=== PATIENT | male | born 1965 | race Caucasian/White ===

== ENCOUNTER 2022-07-20 00:22 | Observation (INO) | payer OTHER ==
--- NOTE | 2022-07-20 00:26 | ERPHSYRPT ---
- History of Present Illness Time Seen by Provider: 07/20/22 00:26 Source: patient, family Exam Limitations: intoxication Physician History: 57yo brought in by family after seizure like activity at home. He had been drinking heavily earlier in the night and when he got home didn't feel right. Patient called his family and when they arrived they witnessed him shaking unc ontrollably in his chair. He denies fall, hitting head of LOC. He denied recreational drug usage. Patient also denies hx of seizure or recently stopping a medication. He denies F/C/N/V, WRIGHT, weakness, CP, abd pain, SOB, palpitations or swelling. Timing/Duration: today Severity: moderate Character of Deficits: impaired speech Deficits: off balance, decrease ability to walk Baseline/Normal Cognition: alert oriented x 3 Current Cognition: alert but confused Baseline Gait: walks w/o assistance Associated Symptoms: confusion, weakness (legs), slurred speech, trouble walking, No fever, No chills, No loss of consciousness, No nausea, No vomiting, No chest pain, No headache Allergies/Adverse Reactions: No Known Drug Allergies Allergy (Verified 07/20/22 00:39) Home Medications: Simvastatin 20Mg [Zocor 20Mg] 20 mg PO DAILY 07/20/22 [History] - Review of Systems Constitutional: No Symptoms Eyes: No Symptoms Ears, Nose, & Throat: No Symptoms Respiratory: No Symptoms Cardiac: No Symptoms Abdominal/Gastrointestinal: No Symptoms Genitourinary Symptoms: No Symptoms Skin: No Symptoms Neurological: Seizure, Speech Changes, Other (weakness b/l LE) Psychological: Alcohol Abuse All Other Systems: Reviewed and Negative - Nursing Vital Signs Nursing Vital Signs: Initial Vital Signs Pulse Rate 116 H 07/20/22 00:31 Respiratory Rate 16 07/20/22 00:31 Blood Pressure 174/102 07/20/22 00:31 O2 Sat by Pulse Oximetry 100 07/20/22 00:31 Pain Scale Pain Intensity 0 - Martin Coma Scale Best Eye Response (Martin): (4) open spontaneously Best Verbal Response ([place]): (5) oriented Best Motor Response (Martin): (6) obeys commands Martin Total: 15 - Physical Exam General Appearance: no apparent distress Eye Exam: bilateral eye: normal inspection, PERRL, EOMI Ears, Nose, Throat Exam: normal ENT inspection Neck Exam: normal inspection, non-tender, supple, full range of motion, No Brudzinski, No Kernig's Respiratory: normal breath sounds, lungs clear, airway intact, No chest tenderness, No respiratory distress Cardiovascular: regular rate/rhythm, normal heart sounds, capillary refill <2 sec, No murmur Gastrointestinal: soft, normal bowel sounds, No tenderness, No distention Mental Status: alert, cooperative, intoxicated appearance water purifier Exam: normal hearing, PERRL, abnormal speech, tongue midline Coordination/Gait: abnormal gait, No normal gait Motor/Sensory: no sensory deficit, no pronator drift, weak motor strength RLE, weak motor strength LLE Skin Exam: normal color, warm, dry SpO2 Interpretation: normal O2 Delivery: Room Air - Course Nursing assessment & vital signs reviewed: Yes EKG Interpreted by Me: RATE (88), Sinus Rhythm, prolonged QT interval, Left Bundle Branch Block, ST Elev (v1, v2, v3 secondary to IVCD), Other (IN 199) - CT Exams Head CT Interpretation: Negative Ordered Tests: Active Orders 24 hr Category Date Time Status Impregnator Helper STAT Care 07/20/22 00:28 Active EKG-ER Only STAT Care 07/20/22 00:27 Active IV Insertion STAT Care 07/20/22 00:27 Active NPO (ED) STAT Care 07/20/22 00:27 Active POCT Glucose Check STAT Care 07/20/22 00:27 Active Pulse Oximetry (ED) STAT Care 07/20/22 00:27 Active Seizure Precautions -SCCHED STAT Care 07/20/22 00:27 Active HEAD WITHOUT CONTRAST [CT] Stat Exams 07/20/22 00:27 Taken BLOOD CULTURE Stat Lab 07/20/22 03:33 Received BMP Stat Lab 07/20/22 04:00 Completed CBC W DIFF Stat Lab 07/20/22 00:50 Completed CMP Stat Lab 07/20/22 00:50 Completed ETHYL ALCOHOL Stat Lab 07/20/22 00:50 Completed Lactic Acid Stat Lab 07/20/22 00:47 Completed Lactic Acid Stat Lab 07/20/22 02:53 Completed PROCALCITONIN Stat Lab 07/20/22 03:56 Completed TROPONIN Q4H Lab 07/20/22 00:45 Completed TROPONIN Q4H Lab 07/20/22 03:56 Completed TROPONIN Q4H Lab 07/20/22 10:15 Ordered UA W/RFX UR CULTURE Stat Lab 07/20/22 03:38 Completed Urine Triage Profile Stat Lab 07/20/22 03:38 Completed VENOUS BLOOD GAS Stat Lab 07/20/22 00:47 Completed Transfer Order Routine Transfer 07/20/22 Ordered Medication Summary Discontinued Medications Generic Name Dose Route Start Last Admin Trade Name Ralph PRN Reason Stop Dose Admin Sodium Chloride 1,000 mls @ 999 mls/hr 07/20/22 00:27 07/20/22 01:56 Sodium Chloride 0.9% 1000 Ml IV 07/20/22 01:27 Infused .Q1H1M STA Infusion Levetiracetam 1,000 mg/ 110 mls @ 400 mls/hr 07/20/22 00:27 07/20/22 00:48 Dextrose IV 07/20/22 00:43 400 mls/hr STAT ONE Administration Sodium Chloride Confirm 07/20/22 00:46 Sodium Chloride 0.9% 1000 Ml Administered 07/20/22 00:47 Dose 1,000 mls @ ud .ROUTE .STK-MED ONE Dextrose Confirm 07/20/22 00:47 D5w 100ml Mini Bag 100 Ml Administered 07/20/22 00:48 Dose 100 mls @ ud IV .STK-MED ONE Sodium Chloride 1,000 mls @ 999 mls/hr 07/20/22 03:28 07/20/22 04:40 Sodium Chloride 0.9% 1000 Ml IV 07/20/22 04:28 Infused .Q1H1M STA Infusion Sodium Chloride Confirm 07/20/22 03:38 Sodium Chloride 0.9% 1000 Ml Administered 07/20/22 03:39 Dose 1,000 mls @ ud .ROUTE .STK-MED ONE Levetiracetam Confirm 07/20/22 00:46 Levetiracetam 500 Mg/5 Ml Vial Administered 07/20/22 00:47 Dose 1,000 mg .ROUTE .STK-MED ONE Lorazepam 2 mg 07/20/22 00:27 07/20/22 00:48 Lorazepam 2 Mg/1 Ml 2 Mg Vial IV 07/20/22 00:28 2 mg STAT ONE Administration Lorazepam Confirm 07/20/22 00:45 Lorazepam 2 Mg/1 Ml 2 Mg Vial Administered 07/20/22 00:46 Dose 2 mg .ROUTE .STK-MED ONE Lab/Rad Data: Laboratory Result Diagrams 07/20/22 00:50 07/20/22 04:00 Laboratory Results 07/20/22 07/20/22 07/20/22 Range/Units 05:58 04:00 03:56 WBC (4.0-10.5) x10^3/uL RBC (4.1-5.6) x10^6/uL Hgb (12.5-18.0) g/dL Hct (42-50) % MCV (78-100) fL MCH (26-32) pg MCHC (32-36) g/dL RDW (11.5-14.0) % Plt Count (150-450) x10^3/uL MPV (7.5-11.0) fL Gran % (36.0-66.0) % Immature Gran % (Auto) (0.00-0.4) % Nucleat RBC Rel Count (0.00-0.1) % Eos # (Auto) (0-0.5) x10^3/uL Immature Gran # (Auto) (0.00-0.03) x10^3u/L Absolute Lymphs (auto) (1.0-4.6) x10^3/uL Absolute Monos (auto) (0.0-1.3) x10^3/uL Absolute Nucleated RBC (0.00-0.01) x10^3u/L Lymphocytes % (24.0-44.0) % Monocytes % (0.0-12.0) % Eosinophils % (0.00-5.0) % Basophils % (0.0-0.4) % Absolute Granulocytes (1.4-6.9) x10^3/uL Basophils # (0-0.4) x10^3/uL pO2/FiO2 Ratio % VBG pH (7.32-7.42) VBG pCO2 at Pat Temp (42-55) mm/Hg VBG pO2 at Pat Temp (25-40) mm/Hg VBG HCO3 (22-28) meq/L VBG O2 Sat (Saari) (95-100) VBG Base Excess (-2.0-2.0) VBG Hemoglobin VBG Carboxyhemoglobin (0.0-6.9) % T HGB POC Potassium (3.5-5.1) Sodium 142 (137-145) mmol/L Potassium 3.7 (3.5-5.1) mmol/L Chloride 109 H (98-107) mmol/L Carbon Dioxide 21 L (22-30) mmol/L Anion Gap 15.7 H (5-15) MEQ/L BUN 9 (9-20) mg/dL Creatinine 0.73 (0.66-1.25) mg/dL Estimated GFR > 60.0 ML/MIN Glucose 201 H (74-106) mg/dL Lactic Acid (0.4-2.0) Calcium 8.4 (8.4-10.2) mg/dL Total Bilirubin (0.2-1.3) mg/dL AST (17-59) U/L ALT (0-50) U/L Alkaline Phosphatase (38-126) U/L Troponin I (0.000-0.034) ng/mL Serum Total Protein (6.3-8.2) g/dL Albumin (3.5-5.0) g/dL Procalcitonin 0.050 (0.030-0.080) ng/mL Urine Color (Yellow) Urine Appearance (Clear) Urine pH (4.6-8.0) Ur Specific [place] (1.005-1.030) Urine Protein (Negative) Urine Glucose (UA) (Negative) mg/dL Urine Ketones (Negative) Urine Blood (Negative) Urine Nitrite (Negative) Urine Bilirubin (Negative) Urine Urobilinogen (0.2) mg/dL Ur Leukocyte Esterase (Negative) U Hyaline Cast (Auto) (0-2) /LPF Urine Microscopic RBC (0-5) /HPF Urine Microscopic WBC (0-5) /HPF Ur Epithelial Cells (None Seen) /HPF Urine Bacteria (None Seen) /HPF Urine Culture Reflexed (NO) Urine Opiates Level (NEGATIVE) Ur Methadone (NEGATIVE) Urine Barbiturates (NEGATIVE) Ur Phencyclidine (PCP) (NEGATIVE) Urine Amphetamine (NEGATIVE) U Benzodiazepine Level (NEGATIVE) Urine Cocaine (NEGATIVE) Urine Marijuana (THC) (NEGATIVE) Ethyl Alcohol (0-10) mg/dL Influenza Type A Ag NEGATIVE (NEGATIVE) Influenza Type B Ag NEGATIVE (NEGATIVE) RSV (PCR) NEGATIVE (Negative) SARS-CoV-2 (PCR) NEGATIVE (NEGATIVE) 07/20/22 07/20/22 07/20/22 Range/Units 03:56 03:38 03:38 WBC (4.0-10.5) x10^3/uL RBC (4.1-5.6) x10^6/uL Hgb (12.5-18.0) g/dL Hct (42-50) % MCV (78-100) fL MCH (26-32) pg MCHC (32-36) g/dL RDW (11.5-14.0) % Plt Count (150-450) x10^3/uL MPV (7.5-11.0) fL Gran % (36.0-66.0) % Immature Gran % (Auto) (0.00-0.4) % Nucleat RBC Rel Count (0.00-0.1) % Eos # (Auto) (0-0.5) x10^3/uL Immature Gran # (Auto) (0.00-0.03) x10^3u/L Absolute Lymphs (auto) (1.0-4.6) x10^3/uL Absolute Monos (auto) (0.0-1.3) x10^3/uL Absolute Nucleated RBC (0.00-0.01) x10^3u/L Lymphocytes % (24.0-44.0) % Monocytes % (0.0-12.0) % Eosinophils % (0.00-5.0) % Basophils % (0.0-0.4) % Absolute Granulocytes (1.4-6.9) x10^3/uL Basophils # (0-0.4) x10^3/uL pO2/FiO2 Ratio % VBG pH (7.32-7.42) VBG pCO2 at Pat Temp (42-55) mm/Hg VBG pO2 at Pat Temp (25-40) mm/Hg VBG HCO3 (22-28) meq/L VBG O2 Sat (Sarai) (95-100) VBG Base Excess (-2.0-2.0) VBG Hemoglobin VBG Carboxyhemoglobin (0.0-6.9) % T HGB POC Potassium (3.5-5.1) Sodium (137-145) mmol/L Potassium (3.5-5.1) mmol/L Chloride (98-107) mmol/L Carbon Dioxide (22-30) mmol/L Anion Gap (5-15) MEQ/L BUN (9-20) mg/dL Creatinine (0.66-1.25) mg/dL Estimated GFR ML/MIN Glucose (74-106) mg/dL Lactic Acid (0.4-2.0) Calcium (8.4-10.2) mg/dL Total Bilirubin (0.2-1.3) mg/dL AST (17-59) U/L ALT (0-50) U/L Alkaline Phosphatase (38-126) U/L Troponin I 0.014 (0.000-0.034) ng/mL Serum Total Protein (6.3-8.2) g/dL Albumin (3.5-5.0) g/dL Procalcitonin (0.030-0.080) ng/mL Urine Color Yellow (Yellow) Urine Appearance Clear (Clear) Urine pH 5.5 (4.6-8.0) Ur Specific [place] 1.015 (1.005-1.030) Urine Protein 30 (Negative) Urine Glucose (UA) >=1000 A (Negative) mg/dL Urine Ketones 15 A (Negative) Urine Blood Negative (Negative) Urine Nitrite Negative (Negative) Urine Bilirubin Negative (Negative) Urine Urobilinogen 0.2 (0.2) mg/dL Ur Leukocyte Esterase Negative (Negative) U Hyaline Cast (Auto) NONE SEEN (0-2) /LPF Urine Microscopic RBC 0-2 (0-5) /HPF Urine Microscopic WBC 0-2 (0-5) /HPF Ur Epithelial Cells None Seen (None Seen) /HPF Urine Bacteria None Seen (None Seen) /HPF Urine Culture Reflexed NO (NO) Urine Opiates Level NEGATIVE (NEGATIVE) Ur Methadone NEGATIVE (NEGATIVE) Urine Barbiturates NEGATIVE (NEGATIVE) Ur Phencyclidine (PCP) NEGATIVE (NEGATIVE) Urine Amphetamine NEGATIVE (NEGATIVE) U Benzodiazepine Level NEGATIVE (NEGATIVE) Urine Cocaine NEGATIVE (NEGATIVE) Urine Marijuana (THC) NEGATIVE (NEGATIVE) Ethyl Alcohol (0-10) mg/dL Influenza Type A Ag (NEGATIVE) Influenza Type B Ag (NEGATIVE) RSV (PCR) (Negative) SARS-CoV-2 (PCR) (NEGATIVE) 02/05/23 02/05/23 02/05/23 Range/Units 02:53 00:50 00:50 WBC (4.0-10.5) x10^3/uL RBC (4.1-5.6) x10^6/uL Hgb (12.5-18.0) g/dL Hct (42-50) % MCV (78-100) fL MCH (26-32) pg MCHC (32-36) g/dL RDW (11.5-14.0) % Plt Count (150-450) x10^3/uL MPV (7.5-11.0) fL Gran % (36.0-66.0) % Immature Gran % (Auto) (0.00-0.4) % Nucleat RBC Rel Count (0.00-0.1) % Eos # (Auto) (0-0.5) x10^3/uL Immature Gran # (Auto) (0.00-0.03) x10^3u/L Absolute Lymphs (auto) (1.0-4.6) x10^3/uL Absolute Monos (auto) (0.0-1.3) x10^3/uL Absolute Nucleated RBC (0.00-0.01) x10^3u/L Lymphocytes % (24.0-44.0) % Monocytes % (0.0-12.0) % Eosinophils % (0.00-5.0) % Basophils % (0.0-0.4) % Absolute Granulocytes (1.4-6.9) x10^3/uL Basophils # (0-0.4) x10^3/uL pO2/FiO2 Ratio % VBG pH (7.32-7.42) VBG pCO2 at Pat Temp (42-55) mm/Hg VBG pO2 at Pat Temp (25-40) mm/Hg VBG HCO3 (22-28) meq/L VBG O2 Sat (Sarai) (95-100) VBG Base Excess (-2.0-2.0) VBG Hemoglobin VBG Carboxyhemoglobin (0.0-6.9) % T HGB POC Potassium (3.5-5.1) Sodium 142 (137-145) mmol/L Potassium 4.1 (3.5-5.1) mmol/L Chloride 106 (98-107) mmol/L Carbon Dioxide 20 L (22-30) mmol/L Anion Gap 20.6 H (5-15) MEQ/L BUN 10 (9-20) mg/dL Creatinine 0.91 (0.66-1.25) mg/dL Estimated GFR > 60.0 ML/MIN Glucose 266 H (74-106) mg/dL Lactic Acid 2.5 H (0.4-2.0) Calcium 9.4 (8.4-10.2) mg/dL Total Bilirubin 0.90 (0.2-1.3) mg/dL AST 42 (17-59) U/L ALT 36 (0-50) U/L Alkaline Phosphatase 52 (38-126) U/L Troponin I (0.000-0.034) ng/mL Serum Total Protein 8.5 H (6.3-8.2) g/dL Albumin 4.8 (3.5-5.0) g/dL Procalcitonin (0.030-0.080) ng/mL Urine Color (Yellow) Urine Appearance (Clear) Urine pH (4.6-8.0) Ur Specific [place] (1.005-1.030) Urine Protein (Negative) Urine Glucose (UA) (Negative) mg/dL Urine Ketones (Negative) Urine Blood (Negative) Urine Nitrite (Negative) Urine Bilirubin (Negative) Urine Urobilinogen (0.2) mg/dL Ur Leukocyte Esterase (Negative) U Hyaline Cast (Auto) (0-2) /LPF Urine Microscopic RBC (0-5) /HPF Urine Microscopic WBC (0-5) /HPF Ur Epithelial Cells (None Seen) /HPF Urine Bacteria (None Seen) /HPF Urine Culture Reflexed (NO) Urine Opiates Level (NEGATIVE) Ur Methadone (NEGATIVE) Urine Barbiturates (NEGATIVE) Ur Phencyclidine (PCP) (NEGATIVE) Urine Amphetamine (NEGATIVE) U Benzodiazepine Level (NEGATIVE) Urine Cocaine (NEGATIVE) Urine Marijuana (THC) (NEGATIVE) Ethyl Alcohol 105 H (0-10) mg/dL Influenza Type A Ag (NEGATIVE) Influenza Type B Ag (NEGATIVE) RSV (PCR) (Negative) SARS-CoV-2 (PCR) (NEGATIVE) 07/20/22 07/20/22 07/20/22 Range/Units 00:50 00:47 00:45 WBC 6.6 (4.0-10.5) x10^3/uL RBC 4.62 (4.1-5.6) x10^6/uL Hgb 13.6 (12.5-18.0) g/dL Hct 40.0 L (42-50) % MCV 86.6 (78-100) fL MCH 29.4 (26-32) pg MCHC 34.0 (32-36) g/dL RDW 12.2 (11.5-14.0) % Plt Count 287 (150-450) x10^3/uL MPV 9.9 (7.5-11.0) fL Gran % 72.9 H (36.0-66.0) % Immature Gran % (Auto) 0.2 (0.00-0.4) % Nucleat RBC Rel Count 0.0 (0.00-0.1) % Eos # (Auto) 0.02 (0-0.5) x10^3/uL Immature Gran # (Auto) 0.01 (0.00-0.03) x10^3u/L Absolute Lymphs (auto) 1.25 (1.0-4.6) x10^3/uL Absolute Monos (auto) 0.49 (0.0-1.3) x10^3/uL Absolute Nucleated RBC 0.00 (0.00-0.01) x10^3u/L Lymphocytes % 18.9 L (24.0-44.0) % Monocytes % 7.4 (0.0-12.0) % Eosinophils % 0.3 (0.00-5.0) % Basophils % 0.3 (0.0-0.4) % Absolute Granulocytes 4.83 (1.4-6.9) x10^3/uL Basophils # 0.02 (0-0.4) x10^3/uL pO2/FiO2 Ratio 21.0 % VBG pH 7.50 H (7.32-7.42) VBG pCO2 at Pat Temp 27 L (42-55) mm/Hg VBG pO2 at Pat Temp 32 (25-40) mm/Hg VBG HCO3 21.1 L (22-28) meq/L VBG O2 Sat (Sarai) 60.3 L (95-100) VBG Base Excess -0.7 (-2.0-2.0) VBG Hemoglobin 14.4 VBG Carboxyhemoglobin 2.2 (0.0-6.9) % T HGB POC Potassium 4.0 (3.5-5.1) Sodium (137-145) mmol/L Potassium (3.5-5.1) mmol/L Chloride (98-107) mmol/L Carbon Dioxide (22-30) mmol/L Anion Gap (5-15) MEQ/L BUN (9-20) mg/dL Creatinine (0.66-1.25) mg/dL Estimated GFR ML/MIN Glucose (74-106) mg/dL Lactic Acid 4.1 H (0.4-2.0) Calcium (8.4-10.2) mg/dL Total Bilirubin (0.2-1.3) mg/dL AST (17-59) U/L ALT (0-50) U/L Alkaline Phosphatase (38-126) U/L Troponin I 0.014 (0.000-0.034) ng/mL Serum Total Protein (6.3-8.2) g/dL Albumin (3.5-5.0) g/dL Procalcitonin (0.030-0.080) ng/mL Urine Color (Yellow) Urine Appearance (Clear) Urine pH (4.6-8.0) Ur Specific [place] (1.005-1.030) Urine Protein (Negative) Urine Glucose (UA) (Negative) mg/dL Urine Ketones (Negative) Urine Blood (Negative) Urine Nitrite (Negative) Urine Bilirubin (Negative) Urine Urobilinogen (0.2) mg/dL Ur Leukocyte Esterase (Negative) U Hyaline Cast (Auto) (0-2) /LPF Urine Microscopic RBC (0-5) /HPF Urine Microscopic WBC (0-5) /HPF Ur Epithelial Cells (None Seen) /HPF Urine Bacteria (None Seen) /HPF Urine Culture Reflexed (NO) Urine Opiates Level (NEGATIVE) Ur Methadone (NEGATIVE) Urine Barbiturates (NEGATIVE) Ur Phencyclidine (PCP) (NEGATIVE) Urine Amphetamine (NEGATIVE) U Benzodiazepine Level (NEGATIVE) Urine Cocaine (NEGATIVE) Urine Marijuana (THC) (NEGATIVE) Ethyl Alcohol (0-10) mg/dL Influenza Type A Ag (NEGATIVE) Influenza Type B Ag (NEGATIVE) RSV (PCR) (Negative) SARS-CoV-2 (PCR) (NEGATIVE) - Progress Progress: improved Progress Note: Patient responded well to Keppra and Ativan, no more seizure like activity noted. Patient resting comfortably through the night. Lactate trended down from 4.1 to 2.5 on repeat after IVF. No evidence of infection, source of lactate likely from seizure, prolactin pending. Discussed case w/ Dr. Rivera who agrees to admit patient for observation. 07/20/22 06:53 Discussed with : Bre Will see patient in: hospital (observation) Counseled pt/family regarding: drug and/or alcohol abuse, lab results, diagnosis, need for follow-up, rad results - Departure Departure Disposition: Observation Clinical Impression: Seizure-like activity, Hyperglycemia Condition: Stable Critical Care Time: No Referrals: Marlene Weinstein [Primary Care Provider] - Follow up/PCP as directed Instructions: Seizures, Adult (DC)
[2022-07-20] MEDS ORDERED: Keppra 500 MG/5 ML*** 1,000 MG in D5w 100ML Mini Bag 100 ML 100 ML IV ONE (00:27)
[2022-07-20] MEDS ORDERED: Sodium Chloride 0.9% 1000 ML 1,000 ML IV STA ×2 (00:27→03:28)
[2022-07-20] MEDS ORDERED: Ativan 2 MG/1 ML VIAL IV ONE (00:27)
[2022-07-20] MEDS ORDERED: Ativan 2 MG/1 ML VIAL ONE (00:45)
[2022-07-20] MEDS ORDERED: Sodium Chloride 0.9% 1000 ML 1,000 ML ONE ×2 (00:46→03:38)
[2022-07-20] MEDS ORDERED: Keppra 500 MG/5 ML ONE (00:46)
[2022-07-20] MEDS ORDERED: D5w 100ML Mini Bag 100 ML 100 ML IV ONE (00:47)
[2022-07-20 00:52] LABS: Absolute Neutrophil Ct (ANC) 4.83 x10^3/uL (1.4-6.9); BASOPHIL % 0.3 % (0.0-0.4); Basophil (Absolute #) 0.02 x10^3/uL (0-0.4); Eosinophil % 0.3 % (0.00-5.0); Eosinophil (Absolute #) 0.02 x10^3/uL (0-0.5); Hemoglobin 13.6 g/dL (12.5-18.0); IMMATURE GRAN # 0.01 x10^3u/L (0.00-0.03); IMMATURE GRAN % 0.2 % (0.00-0.4); Lymphocyte (Absolute #) 1.25 x10^3/uL (1.0-4.6); Lymphocytes % 18.9 % (24.0-44.0); Mean Cell Volume 86.6 fL (78-100); Mean Corpuscular Hemoglobin 29.4 pg (26-32); Mean Platelet Volume 9.9 fL (7.5-11.0); Monocyte (Absolute #) 0.49 x10^3/uL (0.0-1.3); Monocytes % 7.4 % (0.0-12.0); Neutrophil % 72.9 % (36.0-66.0); Platelet Count 287 x10^3/uL (150-450); Red Blood Count 4.62 x10^6/uL (4.1-5.6); Red Cell Distribution Width 12.2 % (11.5-14.0); White Blood Count 6.6 x10^3/uL (4.0-10.5)
[2022-07-20 00:53] LABS: Lactic Acid 4.1 (0.4-2.0); VBG BASE EXCESS -0.7 (-2.0-2.0); VBG CARBOXYHEMOGLOBIN 2.2 % T HGB (0.0-6.9); VBG HCO3- 21.1 meq/L (22-28); VBG HEMOGLOBIN 14.4; VBG O2 SATURATION 60.3 (95-100); VBG pH 7.5 (7.32-7.42)
[2022-07-20 01:05] LABS: ALBUMIN 4.8 g/dL (3.5-5.0); ALKALINE PHOSPHATASE 52 U/L (38-126); ANION GAP 20.6 MEQ/L (5-15); BLOOD UREA NITROGEN 10 mg/dL (9-20); CHLORIDE 106 mmol/L (98-107); Calcium 9.4 mg/dL (8.4-10.2); Carbon Dioxide 20 mmol/L (22-30); Creatinine 1 0.91 mg/dL (0.66-1.25); EST GLOMERULAR FILTRATION RATE > 60.0 ML/MIN; Glucose 266 mg/dL (74-106); Potassium 4.1 mmol/L (3.5-5.1); SGOT/AST 42 U/L (17-59); SGPT/ALT 36 U/L (0-50); SODIUM 142 mmol/L (137-145); Total Protein 8.5 g/dL (6.3-8.2)
[2022-07-20 03:49] LABS: Appearance Clear (Clear); Bacteria None Seen /HPF (None Seen); Bilirubin Negative (Negative); Blood Negative (Negative); Epithelial Cells None Seen /HPF (None Seen); Glucose, Urine >=1000 mg/dL (Negative); Hyaline Casts NONE SEEN /LPF (0-2); Ketones 15 (Negative); Leukocyte Esterase Negative (Negative); Nitrite Negative (Negative); Ph 5.5 (4.6-8.0); Protein,Urine Dip 30 (Negative); RBC 0-2 /HPF (0-5); Specific Gravity 1.015 (1.005-1.030); Urobilinogen 0.2 mg/dL (0.2); WBC 0-2 /HPF (0-5)
[2022-07-20 03:59] LABS: ADD URINE CULTURE? NO (NO)
[2022-07-20 04:00] LABS: Amphetamine,Urine NEGATIVE (NEGATIVE); Barbiturate,Urine NEGATIVE (NEGATIVE); Benzodiazepine,Urine NEGATIVE (NEGATIVE); Cocaine,Urine NEGATIVE (NEGATIVE); Methadone,Urine NEGATIVE (NEGATIVE); Opiate,Urine NEGATIVE (NEGATIVE); PCP,Urine NEGATIVE (NEGATIVE); THC,Urine NEGATIVE (NEGATIVE)
[2022-07-20 04:34] LABS: ANION GAP 15.7 MEQ/L (5-15); BLOOD UREA NITROGEN 9 mg/dL (9-20); CHLORIDE 109 mmol/L (98-107); Calcium 8.4 mg/dL (8.4-10.2); Carbon Dioxide 21 mmol/L (22-30); Creatinine 1 0.73 mg/dL (0.66-1.25); EST GLOMERULAR FILTRATION RATE > 60.0 ML/MIN; Glucose 201 mg/dL (74-106); Potassium 3.7 mmol/L (3.5-5.1); SODIUM 142 mmol/L (137-145)
[2022-07-20 06:55] LABS: INFLUENZA A NEGATIVE (NEGATIVE); INFLUENZA B NEGATIVE (NEGATIVE); RESPIRATORY SYNCTIAL VIRUS NEGATIVE (Negative); SARS-CoV-2 Xpert Express NEGATIVE (NEGATIVE)
--- NOTE | 2022-07-20 08:37 | XRAY ---
Indication: Seizure. Alcohol intoxication. Multiple contiguous axial images obtained through the head without contrast. Comparison: None Normal appearing brain parenchyma, ventricles, and bony calvarium for patient's age. Visualized paranasal sinuses and mastoid air cells are clear. Impression: Normal CT head without contrast exam.. Comment: Preliminary interpretation made by [facility]. No critical discrepancy.
[2022-07-20] MEDS ORDERED: Zofran 4 MG/2 ML VIAL IV PRN (09:29)
[2022-07-20] MEDS: Sodium Chloride 0.9% 1000 ML 1,000 ML IV SCH ×2 (09:42→19:44)
[2022-07-20] MEDS ORDERED: Ativan 2 MG/1 ML VIAL IV PRN (11:03)
--- NOTE | 2022-07-20 11:29 | PCM.HP ---
History of Present Illness - Chief Complaint Chief Complaint: Seizure activity History of Present Illness: is a 57 year old male pt of Dr. Weinstein with DM who was admitted through ER with possible seizure. He was apparently drinking alcohol earlier, "a lot" of alcohol per pt, when pamela moreno went to check on him, they saw seizure like activity. His daughter is at bedside and she wasn't present for this. Pt doesn't think he's been having seizures. in ER, he was quesitonabnly post-ictal v inebriated. Had some small seizure-like spells x 5-10 min. Loaded keppra 1000 mg and given 4mg ativan and he stopped having episodes for a while. He doesn't remember coming in, but is AAO x 3 (initially sleeping in bed but wakes to voice). when asked why he is here, he says, "somebody told a lie on me." He denies daily drinking; said he last had a binge about 1 yr ago. - Review of Systems Respiratory: Short Of Breath (on arrival) Cardiac: Edema (in LE) Neurological: Parasthesia (tingling in LE) All Other Systems: Reviewed and Negative Medications & Allergies Home Medications: Home Medication List Glipizide Xl 5 mg [Glucotrol Xl 5 MG] 5 mg PO DAILY 07/20/22 [History Confirmed 07/20/22] Lisinopril/Hydrochlorothiazide [Lisinopril-Hctz 20-25 mg Tab] 1 each PO DAILY 07/20/22 [History Confirmed 07/20/22] Metformin HCl 500 mg [Glucophage 500 MG] 1,000 mg PO BIDWM 07/20/22 [History Confirmed 07/20/22] Simvastatin 20Mg [Zocor 20Mg] 20 mg PO DAILY 07/20/22 [History Confirmed 07/20/22] Allergies/Adverse Reactions: Allergies Allergy/AdvReac Type Severity Reaction Status Date / Time No Known Drug Allergies Allergy Verified 07/20/22 00:39 - Past Medical History Past Medical History: Yes Neurological History: No Pertinent History Cardiac History: Hypertension Endocrine Medical History: Diabetes Type II Musculoskelatal History: Arthritis GI Medical History: No Pertinent History History: No Pertinent History Pyscho-Social History: No Pertinent History Male Reproductive Disorders: No Pertinent History Comment: arthritis in back - Past Surgical History Past Surgical History: Yes - Social History Smoking Status: Former smoker Exposure to second hand smoke: No Alcohol: Occasionally Drug Use: none - Physical Exam Vital Signs: Vital Signs - 24 hr Temp Pulse Resp BP Pulse Ox 07/20/22 09:38 98.3 F 78 18 131/84 95 07/20/22 09:01 70 16 126/83 99 07/20/22 08:03 73 25 H 125/72 97 07/20/22 07:36 75 18 127/85 97 07/20/22 06:09 76 24 132/80 98 07/20/22 05:00 79 18 112/68 98 07/20/22 04:00 77 18 106/76 95 07/20/22 03:00 87 16 112/73 98 07/20/22 02:00 84 18 123/77 98 07/20/22 01:22 85 18 135/95 93 L 07/20/22 00:31 116 H 16 174/102 99 General Appearance: no apparent distress, alert Neurologic Exam: oriented x 3, cooperative Eye Exam: eyes nml inspection Ears, Nose, Throat Exam: moist mucous membranes Neck Exam: normal inspection, non-tender, No lymphadenopathy, No thyromegaly Respiratory Exam: normal breath sounds, lungs clear, No crackles/rales, No rhonchi, No wheezing Cardiovascular Exam: regular rate/rhythm, normal heart sounds, No murmur Gastrointestinal/Abdomen Exam: soft, normal bowel sounds, No tenderness, No distention, No mass, No guarding Back Exam: normal inspection, No rash Extremity Exam: normal inspection, swelling (trace LE edema L pretibial) Skin Exam: normal color, warm, dry, No rash Results - Labs Lab/Micro Results: Lab Results-Last 24 Hours 07/20/22 07/20/22 07/20/22 Range/Units 00:45 00:47 00:50 WBC 6.6 (4.0-10.5) x10^3/uL RBC 4.62 (4.1-5.6) x10^6/uL Hgb 13.6 (12.5-18.0) g/dL Hct 40.0 L (42-50) % MCV 86.6 (78-100) fL MCH 29.4 (26-32) pg MCHC 34.0 (32-36) g/dL RDW 12.2 (11.5-14.0) % Plt Count 287 (150-450) x10^3/uL MPV 9.9 (7.5-11.0) fL Gran % 72.9 H (36.0-66.0) % Immature Gran % (Auto) 0.2 (0.00-0.4) % Nucleat RBC Rel Count 0.0 (0.00-0.1) % Eos # (Auto) 0.02 (0-0.5) x10^3/uL Immature Gran # (Auto) 0.01 (0.00-0.03) x10^3u/L Absolute Lymphs (auto) 1.25 (1.0-4.6) x10^3/uL Absolute Monos (auto) 0.49 (0.0-1.3) x10^3/uL Absolute Nucleated RBC 0.00 (0.00-0.01) x10^3u/L Lymphocytes % 18.9 L (24.0-44.0) % Monocytes % 7.4 (0.0-12.0) % Eosinophils % 0.3 (0.00-5.0) % Basophils % 0.3 (0.0-0.4) % Absolute Granulocytes 4.83 (1.4-6.9) x10^3/uL Basophils # 0.02 (0-0.4) x10^3/uL pO2/FiO2 Ratio 21.0 % VBG pH 7.50 H (7.32-7.42) VBG pCO2 at Pat Temp 27 L (42-55) mm/Hg VBG pO2 at Pat Temp 32 (25-40) mm/Hg VBG HCO3 21.1 L (22-28) meq/L VBG O2 Sat (Sarai) 60.3 L (95-100) VBG Base Excess -0.7 (-2.0-2.0) VBG Hemoglobin 14.4 VBG Carboxyhemoglobin 2.2 (0.0-6.9) % T HGB POC Potassium 4.0 (3.5-5.1) Sodium (137-145) mmol/L Potassium (3.5-5.1) mmol/L Chloride (98-107) mmol/L Carbon Dioxide (22-30) mmol/L Anion Gap (5-15) MEQ/L BUN (9-20) mg/dL Creatinine (0.66-1.25) mg/dL Estimated GFR ML/MIN Glucose (74-106) mg/dL Hemoglobin A1c (4.5-6.0) % Lactic Acid 4.1 H (0.4-2.0) Calcium (8.4-10.2) mg/dL Total Bilirubin (0.2-1.3) mg/dL AST (17-59) U/L ALT (0-50) U/L Alkaline Phosphatase (38-126) U/L Troponin I 0.014 (0.000-0.034) ng/mL Serum Total Protein (6.3-8.2) g/dL Albumin (3.5-5.0) g/dL Procalcitonin (0.030-0.080) ng/mL Urine Color (Yellow) Urine Appearance (Clear) Urine pH (4.6-8.0) Ur Specific Matthews (1.005-1.030) Urine Protein (Negative) Urine Glucose (UA) (Negative) mg/dL Urine Ketones (Negative) Urine Blood (Negative) Urine Nitrite (Negative) Urine Bilirubin (Negative) Urine Urobilinogen (0.2) mg/dL Ur Leukocyte Esterase (Negative) U Hyaline Cast (Auto) (0-2) /LPF Urine Microscopic RBC (0-5) /HPF Urine Microscopic WBC (0-5) /HPF Ur Epithelial Cells (None Seen) /HPF Urine Bacteria (None Seen) /HPF Urine Culture Reflexed (NO) Urine Opiates Level (NEGATIVE) Ur Methadone (NEGATIVE) Urine Barbiturates (NEGATIVE) Ur Phencyclidine (PCP) (NEGATIVE) Urine Amphetamine (NEGATIVE) U Benzodiazepine Level (NEGATIVE) Urine Cocaine (NEGATIVE) Urine Marijuana (THC) (NEGATIVE) Ethyl Alcohol (0-10) mg/dL Influenza Type A Ag (NEGATIVE) Influenza Type B Ag (NEGATIVE) RSV (PCR) (Negative) SARS-CoV-2 (PCR) (NEGATIVE) 07/20/22 07/20/22 07/20/22 Range/Units 00:50 00:50 02:53 WBC (4.0-10.5) x10^3/uL RBC (4.1-5.6) x10^6/uL Hgb (12.5-18.0) g/dL Hct (42-50) % MCV (78-100) fL MCH (26-32) pg MCHC (32-36) g/dL RDW (11.5-14.0) % Plt Count (150-450) x10^3/uL MPV (7.5-11.0) fL Gran % (36.0-66.0) % Immature Gran % (Auto) (0.00-0.4) % Nucleat RBC Rel Count (0.00-0.1) % Eos # (Auto) (0-0.5) x10^3/uL Immature Gran # (Auto) (0.00-0.03) x10^3u/L Absolute Lymphs (auto) (1.0-4.6) x10^3/uL Absolute Monos (auto) (0.0-1.3) x10^3/uL Absolute Nucleated RBC (0.00-0.01) x10^3u/L Lymphocytes % (24.0-44.0) % Monocytes % (0.0-12.0) % Eosinophils % (0.00-5.0) % Basophils % (0.0-0.4) % Absolute Granulocytes (1.4-6.9) x10^3/uL Basophils # (0-0.4) x10^3/uL pO2/FiO2 Ratio % VBG pH (7.32-7.42) VBG pCO2 at Pat Temp (42-55) mm/Hg VBG pO2 at Pat Temp (25-40) mm/Hg VBG HCO3 (22-28) meq/L VBG O2 Sat (Sarai) (95-100) VBG Base Excess (-2.0-2.0) VBG Hemoglobin VBG Carboxyhemoglobin (0.0-6.9) % T HGB POC Potassium (3.5-5.1) Sodium 142 (137-145) mmol/L Potassium 4.1 (3.5-5.1) mmol/L Chloride 106 (98-107) mmol/L Carbon Dioxide 20 L (22-30) mmol/L Anion Gap 20.6 H (5-15) MEQ/L BUN 10 (9-20) mg/dL Creatinine 0.91 (0.66-1.25) mg/dL Estimated GFR > 60.0 ML/MIN Glucose 266 H (74-106) mg/dL Hemoglobin A1c (4.5-6.0) % Lactic Acid 2.5 H (0.4-2.0) Calcium 9.4 (8.4-10.2) mg/dL Total Bilirubin 0.90 (0.2-1.3) mg/dL AST 42 (17-59) U/L ALT 36 (0-50) U/L Alkaline Phosphatase 52 (38-126) U/L Troponin I (0.000-0.034) ng/mL Serum Total Protein 8.5 H (6.3-8.2) g/dL Albumin 4.8 (3.5-5.0) g/dL Procalcitonin (0.030-0.080) ng/mL Urine Color (Yellow) Urine Appearance (Clear) Urine pH (4.6-8.0) Ur Specific Matthews (1.005-1.030) Urine Protein (Negative) Urine Glucose (UA) (Negative) mg/dL Urine Ketones (Negative) Urine Blood (Negative) Urine Nitrite (Negative) Urine Bilirubin (Negative) Urine Urobilinogen (0.2) mg/dL Ur Leukocyte Esterase (Negative) U Hyaline Cast (Auto) (0-2) /LPF Urine Microscopic RBC (0-5) /HPF Urine Microscopic WBC (0-5) /HPF Ur Epithelial Cells (None Seen) /HPF Urine Bacteria (None Seen) /HPF Urine Culture Reflexed (NO) Urine Opiates Level (NEGATIVE) Ur Methadone (NEGATIVE) Urine Barbiturates (NEGATIVE) Ur Phencyclidine (PCP) (NEGATIVE) Urine Amphetamine (NEGATIVE) U Benzodiazepine Level (NEGATIVE) Urine Cocaine (NEGATIVE) Urine Marijuana (THC) (NEGATIVE) Ethyl Alcohol 105 H (0-10) mg/dL Influenza Type A Ag (NEGATIVE) Influenza Type B Ag (NEGATIVE) RSV (PCR) (Negative) SARS-CoV-2 (PCR) (NEGATIVE) 07/20/22 07/20/22 07/20/22 Range/Units 03:38 03:38 03:56 WBC (4.0-10.5) x10^3/uL RBC (4.1-5.6) x10^6/uL Hgb (12.5-18.0) g/dL Hct (42-50) % MCV (78-100) fL MCH (26-32) pg MCHC (32-36) g/dL RDW (11.5-14.0) % Plt Count (150-450) x10^3/uL MPV (7.5-11.0) fL Gran % (36.0-66.0) % Immature Gran % (Auto) (0.00-0.4) % Nucleat RBC Rel Count (0.00-0.1) % Eos # (Auto) (0-0.5) x10^3/uL Immature Gran # (Auto) (0.00-0.03) x10^3u/L Absolute Lymphs (auto) (1.0-4.6) x10^3/uL Absolute Monos (auto) (0.0-1.3) x10^3/uL Absolute Nucleated RBC (0.00-0.01) x10^3u/L Lymphocytes % (24.0-44.0) % Monocytes % (0.0-12.0) % Eosinophils % (0.00-5.0) % Basophils % (0.0-0.4) % Absolute Granulocytes (1.4-6.9) x10^3/uL Basophils # (0-0.4) x10^3/uL pO2/FiO2 Ratio % VBG pH (7.32-7.42) VBG pCO2 at Pat Temp (42-55) mm/Hg VBG pO2 at Pat Temp (25-40) mm/Hg VBG HCO3 (22-28) meq/L VBG O2 Sat (Sarai) (95-100) VBG Base Excess (-2.0-2.0) VBG Hemoglobin VBG Carboxyhemoglobin (0.0-6.9) % T HGB POC Potassium (3.5-5.1) Sodium (137-145) mmol/L Potassium (3.5-5.1) mmol/L Chloride (98-107) mmol/L Carbon Dioxide (22-30) mmol/L Anion Gap (5-15) MEQ/L BUN (9-20) mg/dL Creatinine (0.66-1.25) mg/dL Estimated GFR ML/MIN Glucose (74-106) mg/dL Hemoglobin A1c (4.5-6.0) % Lactic Acid (0.4-2.0) Calcium (8.4-10.2) mg/dL Total Bilirubin (0.2-1.3) mg/dL AST (17-59) U/L ALT (0-50) U/L Alkaline Phosphatase (38-126) U/L Troponin I 0.014 (0.000-0.034) ng/mL Serum Total Protein (6.3-8.2) g/dL Albumin (3.5-5.0) g/dL Procalcitonin (0.030-0.080) ng/mL Urine Color Yellow (Yellow) Urine Appearance Clear (Clear) Urine pH 5.5 (4.6-8.0) Ur Specific Matthews 1.015 (1.005-1.030) Urine Protein 30 (Negative) Urine Glucose (UA) >=1000 A (Negative) mg/dL Urine Ketones 15 A (Negative) Urine Blood Negative (Negative) Urine Nitrite Negative (Negative) Urine Bilirubin Negative (Negative) Urine Urobilinogen 0.2 (0.2) mg/dL Ur Leukocyte Esterase Negative (Negative) U Hyaline Cast (Auto) NONE SEEN (0-2) /LPF Urine Microscopic RBC 0-2 (0-5) /HPF Urine Microscopic WBC 0-2 (0-5) /HPF Ur Epithelial Cells None Seen (None Seen) /HPF Urine Bacteria None Seen (None Seen) /HPF Urine Culture Reflexed NO (NO) Urine Opiates Level NEGATIVE (NEGATIVE) Ur Methadone NEGATIVE (NEGATIVE) Urine Barbiturates NEGATIVE (NEGATIVE) Ur Phencyclidine (PCP) NEGATIVE (NEGATIVE) Urine Amphetamine NEGATIVE (NEGATIVE) U Benzodiazepine Level NEGATIVE (NEGATIVE) Urine Cocaine NEGATIVE (NEGATIVE) Urine Marijuana (THC) NEGATIVE (NEGATIVE) Ethyl Alcohol (0-10) mg/dL Influenza Type A Ag (NEGATIVE) Influenza Type B Ag (NEGATIVE) RSV (PCR) (Negative) SARS-CoV-2 (PCR) (NEGATIVE) 07/20/22 07/20/22 07/20/22 Range/Units 03:56 04:00 05:58 WBC (4.0-10.5) x10^3/uL RBC (4.1-5.6) x10^6/uL Hgb (12.5-18.0) g/dL Hct (42-50) % MCV (78-100) fL MCH (26-32) pg MCHC (32-36) g/dL RDW (11.5-14.0) % Plt Count (150-450) x10^3/uL MPV (7.5-11.0) fL Gran % (36.0-66.0) % Immature Gran % (Auto) (0.00-0.4) % Nucleat RBC Rel Count (0.00-0.1) % Eos # (Auto) (0-0.5) x10^3/uL Immature Gran # (Auto) (0.00-0.03) x10^3u/L Absolute Lymphs (auto) (1.0-4.6) x10^3/uL Absolute Monos (auto) (0.0-1.3) x10^3/uL Absolute Nucleated RBC (0.00-0.01) x10^3u/L Lymphocytes % (24.0-44.0) % Monocytes % (0.0-12.0) % Eosinophils % (0.00-5.0) % Basophils % (0.0-0.4) % Absolute Granulocytes (1.4-6.9) x10^3/uL Basophils # (0-0.4) x10^3/uL pO2/FiO2 Ratio % VBG pH (7.32-7.42) VBG pCO2 at Pat Temp (42-55) mm/Hg VBG pO2 at Pat Temp (25-40) mm/Hg VBG HCO3 (22-28) meq/L VBG O2 Sat (Sarai) (95-100) VBG Base Excess (-2.0-2.0) VBG Hemoglobin VBG Carboxyhemoglobin (0.0-6.9) % T HGB POC Potassium (3.5-5.1) Sodium 142 (137-145) mmol/L Potassium 3.7 (3.5-5.1) mmol/L Chloride 109 H (98-107) mmol/L Carbon Dioxide 21 L (22-30) mmol/L Anion Gap 15.7 H (5-15) MEQ/L BUN 9 (9-20) mg/dL Creatinine 0.73 (0.66-1.25) mg/dL Estimated GFR > 60.0 ML/MIN Glucose 201 H (74-106) mg/dL Hemoglobin A1c (4.5-6.0) % Lactic Acid (0.4-2.0) Calcium 8.4 (8.4-10.2) mg/dL Total Bilirubin (0.2-1.3) mg/dL AST (17-59) U/L ALT (0-50) U/L Alkaline Phosphatase (38-126) U/L Troponin I (0.000-0.034) ng/mL Serum Total Protein (6.3-8.2) g/dL Albumin (3.5-5.0) g/dL Procalcitonin 0.050 (0.030-0.080) ng/mL Urine Color (Yellow) Urine Appearance (Clear) Urine pH (4.6-8.0) Ur Specific Matthews (1.005-1.030) Urine Protein (Negative) Urine Glucose (UA) (Negative) mg/dL Urine Ketones (Negative) Urine Blood (Negative) Urine Nitrite (Negative) Urine Bilirubin (Negative) Urine Urobilinogen (0.2) mg/dL Ur Leukocyte Esterase (Negative) U Hyaline Cast (Auto) (0-2) /LPF Urine Microscopic RBC (0-5) /HPF Urine Microscopic WBC (0-5) /HPF Ur Epithelial Cells (None Seen) /HPF Urine Bacteria (None Seen) /HPF Urine Culture Reflexed (NO) Urine Opiates Level (NEGATIVE) Ur Methadone (NEGATIVE) Urine Barbiturates (NEGATIVE) Ur Phencyclidine (PCP) (NEGATIVE) Urine Amphetamine (NEGATIVE) U Benzodiazepine Level (NEGATIVE) Urine Cocaine (NEGATIVE) Urine Marijuana (THC) (NEGATIVE) Ethyl Alcohol (0-10) mg/dL Influenza Type A Ag NEGATIVE (NEGATIVE) Influenza Type B Ag NEGATIVE (NEGATIVE) RSV (PCR) NEGATIVE (Negative) SARS-CoV-2 (PCR) NEGATIVE (NEGATIVE) 07/20/22 07/20/22 07/20/22 Range/Units 09:04 09:29 10:15 WBC (4.0-10.5) x10^3/uL RBC (4.1-5.6) x10^6/uL Hgb (12.5-18.0) g/dL Hct (42-50) % MCV (78-100) fL MCH (26-32) pg MCHC (32-36) g/dL RDW (11.5-14.0) % Plt Count (150-450) x10^3/uL MPV (7.5-11.0) fL Gran % (36.0-66.0) % Immature Gran % (Auto) (0.00-0.4) % Nucleat RBC Rel Count (0.00-0.1) % Eos # (Auto) (0-0.5) x10^3/uL Immature Gran # (Auto) (0.00-0.03) x10^3u/L Absolute Lymphs (auto) (1.0-4.6) x10^3/uL Absolute Monos (auto) (0.0-1.3) x10^3/uL Absolute Nucleated RBC (0.00-0.01) x10^3u/L Lymphocytes % (24.0-44.0) % Monocytes % (0.0-12.0) % Eosinophils % (0.00-5.0) % Basophils % (0.0-0.4) % Absolute Granulocytes (1.4-6.9) x10^3/uL Basophils # (0-0.4) x10^3/uL pO2/FiO2 Ratio % VBG pH (7.32-7.42) VBG pCO2 at Pat Temp (42-55) mm/Hg VBG pO2 at Pat Temp (25-40) mm/Hg VBG HCO3 (22-28) meq/L VBG O2 Sat (Sarai) (95-100) VBG Base Excess (-2.0-2.0) VBG Hemoglobin VBG Carboxyhemoglobin (0.0-6.9) % T HGB POC Potassium (3.5-5.1) Sodium (137-145) mmol/L Potassium (3.5-5.1) mmol/L Chloride (98-107) mmol/L Carbon Dioxide (22-30) mmol/L Anion Gap (5-15) MEQ/L BUN (9-20) mg/dL Creatinine (0.66-1.25) mg/dL Estimated GFR ML/MIN Glucose (74-106) mg/dL Hemoglobin A1c 8.50 H (4.5-6.0) % Lactic Acid 1.6 (0.4-2.0) Calcium (8.4-10.2) mg/dL Total Bilirubin (0.2-1.3) mg/dL AST (17-59) U/L ALT (0-50) U/L Alkaline Phosphatase (38-126) U/L Troponin I 0.014 (0.000-0.034) ng/mL Serum Total Protein (6.3-8.2) g/dL Albumin (3.5-5.0) g/dL Procalcitonin (0.030-0.080) ng/mL Urine Color (Yellow) Urine Appearance (Clear) Urine pH (4.6-8.0) Ur Specific Matthews (1.005-1.030) Urine Protein (Negative) Urine Glucose (UA) (Negative) mg/dL Urine Ketones (Negative) Urine Blood (Negative) Urine Nitrite (Negative) Urine Bilirubin (Negative) Urine Urobilinogen (0.2) mg/dL Ur Leukocyte Esterase (Negative) U Hyaline Cast (Auto) (0-2) /LPF Urine Microscopic RBC (0-5) /HPF Urine Microscopic WBC (0-5) /HPF Ur Epithelial Cells (None Seen) /HPF Urine Bacteria (None Seen) /HPF Urine Culture Reflexed (NO) Urine Opiates Level (NEGATIVE) Ur Methadone (NEGATIVE) Urine Barbiturates (NEGATIVE) Ur Phencyclidine (PCP) (NEGATIVE) Urine Amphetamine (NEGATIVE) U Benzodiazepine Level (NEGATIVE) Urine Cocaine (NEGATIVE) Urine Marijuana (THC) (NEGATIVE) Ethyl Alcohol (0-10) mg/dL Influenza Type A Ag (NEGATIVE) Influenza Type B Ag (NEGATIVE) RSV (PCR) (Negative) SARS-CoV-2 (PCR) (NEGATIVE) Accuchecks Date 07/20/22 Time 00:28 - Radiology Impressions Radiology Exams & Impressions: Radiology Procedures Category Date Time Status HEAD WITHOUT CONTRAST [CT] Stat Exams 07/20/22 00:27 Completed Assessment/Plan (1) Seizure-like activity Current Visit: Yes Status: Acute Assessment & Plan: continue keppra, EEg and likely MRI brain tomorrow. Code(s): R56.9 - UNSPECIFIED CONVULSIONS (2) Diabetes mellitus Current Visit: Yes Status: Acute Code(s): E11.9 - TYPE 2 DIABETES MELLITUS WITHOUT COMPLICATIONS (3) Hyperglycemia Current Visit: Yes Status: Acute Code(s): R73.9 - HYPERGLYCEMIA, UNSPECIFIED
[2022-07-20] MEDS: KEPPRA PO SCH ×2 (11:51→21:58)
[2022-07-20] MEDS: Ativan 0.5 MG PO SCH ×4 (12:04→21:58)
[2022-07-20] MEDS: ZOCOR 20MG PO SCH (13:40)
[2022-07-20] MEDS: Zestril 20 MG PO SCH (13:41)
[2022-07-20] MEDS: hydroDIURIL 25 MG PO SCH (13:41)
[2022-07-20] MEDS: Glucotrol Xl 2.5 MG PO SCH (13:41)
[2022-07-20] MEDS: NORCO 5/325 MG PO PRN (13:43)
[2022-07-20] MEDS: HUMALOG SQ PRN (22:02)
[2022-07-21 05:12] LABS: Absolute Neutrophil Ct (ANC) 2.95 x10^3/uL (1.4-6.9); BASOPHIL % 0.4 % (0.0-0.4); Basophil (Absolute #) 0.02 x10^3/uL (0-0.4); Eosinophil % 3.4 % (0.00-5.0); Eosinophil (Absolute #) 0.19 x10^3/uL (0-0.5); Hematocrit 38.3 % (42-50); IMMATURE GRAN # 0.01 x10^3u/L (0.00-0.03); IMMATURE GRAN % 0.2 % (0.00-0.4); Lymphocyte (Absolute #) 1.97 x10^3/uL (1.0-4.6); Lymphocytes % 34.8 % (24.0-44.0); Mean Cell Volume 87.6 fL (78-100); Mean Corpuscular Hemoglobin 29.7 pg (26-32); Mean Corpuscular Hgb Concent. 33.9 g/dL (32-36); Mean Platelet Volume 10.1 fL (7.5-11.0); Monocyte (Absolute #) 0.52 x10^3/uL (0.0-1.3); Monocytes % 9.2 % (0.0-12.0); Platelet Count 279 x10^3/uL (150-450); Red Blood Count 4.37 x10^6/uL (4.1-5.6); Red Cell Distribution Width 12.4 % (11.5-14.0); White Blood Count 5.7 x10^3/uL (4.0-10.5)
[2022-07-21 05:25] LABS: ANION GAP 10.4 MEQ/L (5-15); BLOOD UREA NITROGEN 9 mg/dL (9-20); CHLORIDE 106 mmol/L (98-107); Calcium 8.5 mg/dL (8.4-10.2); Carbon Dioxide 25 mmol/L (22-30); Creatinine 1 0.74 mg/dL (0.66-1.25); EST GLOMERULAR FILTRATION RATE > 60.0 ML/MIN; Glucose 144 mg/dL (74-106); Potassium 3.3 mmol/L (3.5-5.1); SODIUM 138 mmol/L (137-145)
[2022-07-21] MEDS: Glucotrol Xl 2.5 MG PO SCH (08:09)
[2022-07-21] MEDS: Zestril 20 MG PO SCH (09:09)
[2022-07-21] MEDS: ZOCOR 20MG PO SCH (09:10)
[2022-07-21] MEDS: KEPPRA PO SCH ×2 (09:10→21:19)
[2022-07-21] MEDS: Ativan 0.5 MG PO SCH (09:10)
[2022-07-21] MEDS: hydroDIURIL 25 MG PO SCH (09:10)
[2022-07-21] MEDS ORDERED: NON-FORMULARY ITEM (Lisinopril/Hydrochlorothiazide [Lisinopril-Hctz 20-25 Mg Tab] 1 EACH T PO SCH (10:00)
[2022-07-21] MEDS ORDERED: GLIPIZIDE 5 MG PO SCH (10:00)
--- NOTE | 2022-07-21 11:21 | PCM.DS ---
Discharge Summary Date of Admission: 07/20/22 09:24 Admitting Physician: BRY SANTIAGO Primary Care Provider: Elijah Weinstein Allergies Allergies No Known Drug Allergies Allergy (Verified 07/20/22 00:39) Hospital Summary - Hospital Course Hospital Course: Pt was admitted through ER with alcohol intoxication and possible seizure activity. Had been drinking "a lot" and then noted to have possible sz activity, never had before, and was brought to ER where thought to be postictal vs intoxicated. CT head non acute. He was much more awake this morning. Yesterday on med surg floor again had question of seizure activity, consisting of twitches of head and arms but pt able to respond to questions during the events. Pt does not remember these episodes. Pt given scheduled ativan and prn. Today will get MRI and EEG with teleneurology consult. Stop the scheduled ativan. On Keppra. If OK with teleneuro and all tests done and pt stable, may be able to d/c home tonight, but may well have to stay this evening. - Vitals & Intake/Output Vital Signs: Vital Signs Temperature 97.8 F 07/21/22 07:06 Pulse Rate 54 L 07/21/22 07:06 Respiratory Rate 17 07/21/22 07:06 Blood Pressure 120/75 07/21/22 07:06 O2 Sat by Pulse Oximetry 94 L 07/21/22 07:06 Intake & Output: Intake & Output 07/18/22 07/19/22 07/20/22 07/21/22 11:59 11:59 11:59 11:59 Intake Total 1696 Output Total 300 1500 Balance -300 196 Weight 84.4 kg - Lab Result Diagrams: 07/21/22 04:25 07/21/22 04:25 Lab Results-Last 24 Hrs: Lab Results-Last 24 Hours 07/20/22 07/20/22 07/20/22 Range/Units 10:15 11:48 16:35 WBC (4.0-10.5) x10^3/uL RBC (4.1-5.6) x10^6/uL Hgb (12.5-18.0) g/dL Hct (42-50) % MCV (78-100) fL MCH (26-32) pg MCHC (32-36) g/dL RDW (11.5-14.0) % Plt Count (150-450) x10^3/uL MPV (7.5-11.0) fL Gran % (36.0-66.0) % Immature Gran % (Auto) (0.00-0.4) % Nucleat RBC Rel Count (0.00-0.1) % Eos # (Auto) (0-0.5) x10^3/uL Immature Gran # (Auto) (0.00-0.03) x10^3u/L Absolute Lymphs (auto) (1.0-4.6) x10^3/uL Absolute Monos (auto) (0.0-1.3) x10^3/uL Absolute Nucleated RBC (0.00-0.01) x10^3u/L Lymphocytes % (24.0-44.0) % Monocytes % (0.0-12.0) % Eosinophils % (0.00-5.0) % Basophils % (0.0-0.4) % Absolute Granulocytes (1.4-6.9) x10^3/uL Basophils # (0-0.4) x10^3/uL Sodium (137-145) mmol/L Potassium (3.5-5.1) mmol/L Chloride (98-107) mmol/L Carbon Dioxide (22-30) mmol/L Anion Gap (5-15) MEQ/L BUN (9-20) mg/dL Creatinine (0.66-1.25) mg/dL Estimated GFR ML/MIN Glucose (74-106) mg/dL POC Glucometer 136 H 181 H (74 to 106) mg/dL Hemoglobin A1c 8.50 H (4.5-6.0) % Calcium (8.4-10.2) mg/dL 07/20/22 07/21/22 07/21/22 Range/Units 20:34 04:25 04:25 WBC 5.7 (4.0-10.5) x10^3/uL RBC 4.37 (4.1-5.6) x10^6/uL Hgb 13.0 (12.5-18.0) g/dL Hct 38.3 L (42-50) % MCV 87.6 (78-100) fL MCH 29.7 (26-32) pg MCHC 33.9 (32-36) g/dL RDW 12.4 (11.5-14.0) % Plt Count 279 (150-450) x10^3/uL MPV 10.1 (7.5-11.0) fL Gran % 52.0 (36.0-66.0) % Immature Gran % (Auto) 0.2 (0.00-0.4) % Nucleat RBC Rel Count 0.0 (0.00-0.1) % Eos # (Auto) 0.19 (0-0.5) x10^3/uL Immature Gran # (Auto) 0.01 (0.00-0.03) x10^3u/L Absolute Lymphs (auto) 1.97 (1.0-4.6) x10^3/uL Absolute Monos (auto) 0.52 (0.0-1.3) x10^3/uL Absolute Nucleated RBC 0.00 (0.00-0.01) x10^3u/L Lymphocytes % 34.8 (24.0-44.0) % Monocytes % 9.2 (0.0-12.0) % Eosinophils % 3.4 (0.00-5.0) % Basophils % 0.4 (0.0-0.4) % Absolute Granulocytes 2.95 (1.4-6.9) x10^3/uL Basophils # 0.02 (0-0.4) x10^3/uL Sodium 138 (137-145) mmol/L Potassium 3.3 L (3.5-5.1) mmol/L Chloride 106 (98-107) mmol/L Carbon Dioxide 25 (22-30) mmol/L Anion Gap 10.4 (5-15) MEQ/L BUN 9 (9-20) mg/dL Creatinine 0.74 (0.66-1.25) mg/dL Estimated GFR > 60.0 ML/MIN Glucose 144 H (74-106) mg/dL POC Glucometer 275 H (74 to 106) mg/dL Hemoglobin A1c (4.5-6.0) % Calcium 8.5 (8.4-10.2) mg/dL 07/21/22 Range/Units 06:52 WBC (4.0-10.5) x10^3/uL RBC (4.1-5.6) x10^6/uL Hgb (12.5-18.0) g/dL Hct (42-50) % MCV (78-100) fL MCH (26-32) pg MCHC (32-36) g/dL RDW (11.5-14.0) % Plt Count (150-450) x10^3/uL MPV (7.5-11.0) fL Gran % (36.0-66.0) % Immature Gran % (Auto) (0.00-0.4) % Nucleat RBC Rel Count (0.00-0.1) % Eos # (Auto) (0-0.5) x10^3/uL Immature Gran # (Auto) (0.00-0.03) x10^3u/L Absolute Lymphs (auto) (1.0-4.6) x10^3/uL Absolute Monos (auto) (0.0-1.3) x10^3/uL Absolute Nucleated RBC (0.00-0.01) x10^3u/L Lymphocytes % (24.0-44.0) % Monocytes % (0.0-12.0) % Eosinophils % (0.00-5.0) % Basophils % (0.0-0.4) % Absolute Granulocytes (1.4-6.9) x10^3/uL Basophils # (0-0.4) x10^3/uL Sodium (137-145) mmol/L Potassium (3.5-5.1) mmol/L Chloride (98-107) mmol/L Carbon Dioxide (22-30) mmol/L Anion Gap (5-15) MEQ/L BUN (9-20) mg/dL Creatinine (0.66-1.25) mg/dL Estimated GFR ML/MIN Glucose (74-106) mg/dL POC Glucometer 166 H (74 to 106) mg/dL Hemoglobin A1c (4.5-6.0) % Calcium (8.4-10.2) mg/dL Micro Results-Entire Visit: Microbiology 07/20/22 03:56 Blood Culture - Preliminary Blood NO GROWTH TO DATE Accuchecks Date 07/21/22 Date 07/20/22 Date 07/20/22 Date 07/20/22 Time 07:05 Time 20:35 Time 17:09 Time 11:53 - Radiology Exams Ordered Rad Exams-Entire Visit: Radiology Procedures Category Date Time Status HEAD WITHOUT CONTRAST [CT] Stat Exams 07/20/22 00:27 Completed MRI BRAIN W & W/O CONTRAST [MRI] Routine Exams 07/21/22 09:01 Ordered - Procedures and Test Procedures and Tests throughout Hospitalization: Therapy Orders & Screens 07/20/22 09:29 Respiratory Therapy Consult ROUTINE Comment: Reason For Exam: 07/21/22 08:00 EEG 41-60 Minutes (Normal) ONCE Comment: Reason For Exam: Diagnosis: Seizure activity Discharge Exam General Appearance: no apparent distress, alert Neurologic Exam: oriented x 3, cooperative, No motor deficits Eye Exam: eyes nml inspection Ears, Nose, Throat Exam: moist mucous membranes Neck Exam: normal inspection Respiratory Exam: normal breath sounds, lungs clear, No crackles/rales, No rhonchi, No wheezing Cardiovascular Exam: regular rate/rhythm, normal heart sounds, No murmur Back Exam: normal inspection, No rash Extremity Exam: normal inspection, No pedal edema, No swelling Skin Exam: normal color, warm, dry, No rash Final Diagnosis/Problem List - Final Discharge Diagnosis/Problem (1) Seizure-like activity Current Visit: Yes Status: Acute Assessment & Plan: Possible. Now on keppra and ativan. Teleneuro consult, MRI brain, and EEG all pending. Stop ativan and see if any episodes. May be able to d/c tonight or tomorrow if doing well. Code(s): R56.9 - UNSPECIFIED CONVULSIONS (2) Diabetes mellitus Current Visit: Yes Status: Chronic Code(s): E11.9 - TYPE 2 DIABETES MELLITUS WITHOUT COMPLICATIONS (3) Hyperglycemia Current Visit: Yes Status: Acute Code(s): R73.9 - HYPERGLYCEMIA, UNSPECIFIED - Discharge Disposition: Home, Self-Care Condition: Stable Prescriptions: No Action Simvastatin 20Mg [Zocor 20Mg] 20 mg PO DAILY Lisinopril/Hydrochlorothiazide [Lisinopril-Hctz 20-25 mg Tab] 1 each PO DAILY Metformin HCl 500 mg [Glucophage 500 MG] 1,000 mg PO BIDWM Glipizide Xl 5 mg [Glucotrol Xl 5 MG] 5 mg PO DAILY Follow up with: Marlene Weinstein [Primary Care Provider] -
--- NOTE | 2022-07-21 14:10 | XRAY ---
Indication: Seizure. Sagittal, coronal, and axial MRI brain performed using pre-and post T1, T2, FLAIR, diffusion, and ADC sequences. 15 cc Dotarem contrast used. Comparison: None Age-appropriate global atrophy. Minimal periventricular degenerative micro-ischemia signal bilaterally. No acute intracranial hemorrhage, abnormal extra-axial fluid collection, or mass effect. Diffusion images are negative for central disc signal. Following gadolinium, no abnormal enhancing intra or extra-axial mass. No evidence for mesial temporal sclerosis. Fourth ventricle is midline without hydrocephalus. 7/8 cranial nerve complex bilaterally symmetric. Normal flow void signal within the major intracerebral circulation. Normal appearing craniocervical junction and sella turcica. Paranasal sinuses are clear. Impression: Atrophy and minimal degenerative micro-ischemia within normal limits for patient's age. Remaining MRI brain with contrast exam is negative.
[2022-07-21] MEDS: NORCO 5/325 MG PO PRN (14:42)
[2022-07-21] MEDS: HUMALOG SQ PRN (21:47)
[2022-07-22 07:54] VITALS: BP 113/65; PULSE 62; O2SAT 96
[2022-07-22] MEDS: hydroDIURIL 25 MG PO SCH (08:30)
[2022-07-22] MEDS: KEPPRA PO SCH (08:30)
[2022-07-22] MEDS: ZOCOR 20MG PO SCH (08:30)
[2022-07-22] MEDS: Zestril 20 MG PO SCH (08:31)
[2022-07-22] MEDS: Glucotrol Xl 2.5 MG PO SCH (08:31)
--- NOTE | 2022-07-22 08:58 | PCM.DS ---
Discharge Summary Date of Admission: 07/20/22 09:24 Admitting Physician: BRY SANTIAGO Consults: Consults on Case 07/21/22 11:06 Consult Neurology ROUTINE Primary Care Provider: Elijah Weinstein Allergies Allergies No Known Drug Allergies Allergy (Verified 07/20/22 00:39) Hospital Summary - Hospital Course Hospital Course: Pt was admitted through ER with alcohol intoxication and possible seizure activity. Had been drinking "a lot" (possibly 12 beers and 12 shots) and then noted to have possible sz activity, never had before, and was brought to ER where pt was thought to be postictal vs intoxicated. CT head non acute. Initially pt was on scheduled ativan, but that has been discontinued since yesterday with no report of seizure activity. MRI brain was neg. EEG was done. Teleneurology consult recommended 23 hour EEG; however, that is completely unavailable in our area (a 24 hour EEG can be done in [place], but the 23 hour are just for children). Will set pt up for overnight EEG outpatient. He may discharge to home today on keppra 500mg po BID. Outpatient neurology appt to be made before he leaves today. - Vitals & Intake/Output Vital Signs: Vital Signs Temperature 97.7 F 07/22/22 07:53 Pulse Rate 62 07/22/22 07:53 Respiratory Rate 18 07/22/22 07:53 Blood Pressure 113/65 07/22/22 07:53 O2 Sat by Pulse Oximetry 96 07/22/22 07:53 Intake & Output: Intake & Output 07/19/22 07/20/22 07/21/22 07/22/22 11:59 11:59 11:59 11:59 Intake Total 1696 1000 Output Total 300 1500 Balance -135 446 3365 Weight 84.4 kg - Lab Result Diagrams: 07/21/22 04:25 07/21/22 04:25 Lab Results-Last 24 Hrs: Lab Results-Last 24 Hours 07/20/22 07/21/22 07/21/22 Range/Units 00:50 16:10 21:07 POC Glucometer 178 H 258 H (74 to 106) mg/dL Prolactin 14.5 (4.0-15.2) ng/mL 07/22/22 Range/Units 07:03 POC Glucometer 151 H (74 to 106) mg/dL Prolactin (4.0-15.2) ng/mL Micro Results-Entire Visit: Microbiology 07/20/22 03:56 Blood Culture - Preliminary Blood NO GROWTH TO DATE Accuchecks Date 07/21/22 Date 07/21/22 Date 07/21/22 Time 16:23 Time 11:30 - Radiology Exams Ordered Rad Exams-Entire Visit: Radiology Procedures Category Date Time Status MRI BRAIN W & W/O CONTRAST [MRI] Routine Exams 07/21/22 09:01 Completed - Procedures and Test Procedures and Tests throughout Hospitalization: Therapy Orders & Screens 07/20/22 09:29 Respiratory Therapy Consult ROUTINE Comment: Reason For Exam: 07/21/22 08:00 EEG 41-60 Minutes (Normal) ONCE Comment: Reason For Exam: Diagnosis: Seizure activity Discharge Exam General Appearance: no apparent distress, alert Neurologic Exam: oriented x 3, cooperative, No motor deficits Eye Exam: eyes nml inspection Ears, Nose, Throat Exam: moist mucous membranes Neck Exam: normal inspection Respiratory Exam: normal breath sounds, lungs clear, No crackles/rales, No rhonchi, No wheezing Cardiovascular Exam: regular rate/rhythm, normal heart sounds, No murmur Gastrointestinal/Abdomen Exam: soft, normal bowel sounds, No tenderness, No distention, No mass, No guarding, No rebound Back Exam: normal inspection, No rash Extremity Exam: normal inspection, No pedal edema, No swelling Skin Exam: normal color, warm, dry, No rash Final Diagnosis/Problem List - Final Discharge Diagnosis/Problem (1) Seizure-like activity Current Visit: Yes Status: Acute Assessment & Plan: Possible seizures. Home on keppra. No driving until seizures are diagnosed or ruled out (and if diagnosed, until he is seizure free for 6 mo). Outpatient overnight EEG to be scheduled. Code(s): R56.9 - UNSPECIFIED CONVULSIONS (2) Diabetes mellitus Current Visit: Yes Status: Chronic Assessment & Plan: f/u Dr. Weinstein in 1 week. Code(s): E11.9 - TYPE 2 DIABETES MELLITUS WITHOUT COMPLICATIONS (3) Hyperglycemia Current Visit: Yes Status: Acute Code(s): R73.9 - HYPERGLYCEMIA, UNSPECIFIED - Discharge Disposition: Home, Self-Care Condition: Good Prescriptions: New Levetiracetam [Keppra] 500 mg PO BID 30 Days #60 tablet Continue Simvastatin 20Mg [Zocor 20Mg] 20 mg PO DAILY Lisinopril/Hydrochlorothiazide [Lisinopril-Hctz 20-25 mg Tab] 1 each PO DAILY Metformin HCl 500 mg [Glucophage 500 MG] 1,000 mg PO BIDWM Glipizide Xl 5 mg [Glucotrol Xl 5 MG] 5 mg PO DAILY Follow up with: Marlene Weinstein [Primary Care Provider] -
== END 2022-07-22 11:15 | disposition home or self-care (01) ==
LOC: ED 00:22 → MED SURG 09:24
PROVIDERS: ADMIT Family Medicine; ATTEND Family Medicine
DX: R56.9 Unspecified convulsions (principal); E11.65 Type 2 diabetes mellitus with hyperglycemia; I10 Essential (primary) hypertension; F10.90 Alcohol use, unspecified, uncomplicated; Z79.899 Other long term (current) drug therapy; Z20.828 Contact with and (suspected) exposure to other viral communicable diseases
CPT/HCPCS: 0241U; 36000; 36415; 70450; 70553; 80048; 80053; 80307; 81001; 82805; 82947; 83036; 83605; 84145; 84146; 84484; 85025; 87040; 93005; 93041; 94760; 95812; 96360; 96361; 96374; 99285; G0480; 93268; J1817; J1953; J2060; Q3014; A9270-GY; G0378

== ENCOUNTER 2023-06-18 11:19 | Emergency (ER) | payer SELFPAY ==
[2023-06-18 11:36] VITALS: PULSE 63; TEMP 98.3; O2SAT 99
[2023-06-18] MEDS ORDERED: TORAdol 30 mg Injection IM ONE (11:56)
[2023-06-18] MEDS ORDERED: TORAdol 30 mg Injection ONE (12:00)
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
[2023-06-18 12:42] VITALS: BP 125/84
== END 2023-06-18 12:46 | disposition home or self-care (01) ==
LOC: ED 11:19
DX: S43.401A Unspecified sprain of right shoulder joint, initial encounter (principal); V69.40XA Driver of heavy transport vehicle injured in collision with unspecified motor vehicles in traffic accident, initial encounter; I10 Essential (primary) hypertension; E11.9 Type 2 diabetes mellitus without complications; Z79.84 Long term (current) use of oral hypoglycemic drugs; Z79.899 Other long term (current) drug therapy; Z28.310 Unvaccinated for COVID-19
CPT/HCPCS: 71045; 73030; 96372; 99285; J1885

== ENCOUNTER 2024-07-21 01:41 | Emergency (ER) | payer SELFPAY ==
--- NOTE | 2024-07-21 01:56 | ERPHSYRPT ---
- History of Present Illness Time Seen by Provider: 07/21/24 01:52 Physician History: 59-year-old male history of diabetes hypertension hypercholesterolemia presents to our emergency department for evaluation of chest pain radiating to his left arm x 2 days. Pain has got progressively worse. Patient is here as he could not sleep this morning due to the pain. No trauma no fever no nausea no vomiting no diaphoresis. Symptoms are constant. Symptoms are moderate in intensity. No specific worsening or improving factors. Patient denies a history of the same. Patient voices no other complaints or concerns at this time. Portions of this note were created with voice recognition technology. There may be grammatical, spelling, punctuation or sound alike errors Complexity of problem addresses is high. Critical care time is 45 minutes Timing/Duration: day(s) (2 days) Activities at Onset: none Quality: aching Location: other (Left chest radiating to left arm) Chest Pain Radiation: arm Severity of Pain-Max: moderate Severity of Pain-Current: mild Modifying Factors: Improves With: nothing Associated Symptoms: denies symptoms Prior Chest Pain/Cardiac Workup: no prior chest pain Nitro Today/Relief: no nitro taken today Aspirin Treatment Today: no aspirin today Allergies/Adverse Reactions: No Known Drug Allergies Allergy (Verified 07/21/24 01:52) Home Medications: Glipizide Xl 5 mg [Glucotrol Xl 5 MG] 10 mg PO DAILY 07/20/22 [History] Lisinopril/Hydrochlorothiazide [Lisinopril-Hctz 20-25 mg Tab] 1 each PO DAILY 07/20/22 [History] Metformin HCl 500 mg [Glucophage 500 MG] 1,000 mg PO BIDWM 07/20/22 [History] Pioglitazone 30 mg [Actos 30 MG] 30 mg PO DAILY 07/21/24 [History] Hx Tetanus, Diphtheria Vaccination/Date Given: No Hx Influenza Vaccination/Date Given: No Hx Pneumococcal Vaccination/Date Given: No - Review of Systems Constitutional: No Symptoms, No Fever, No Chills Eyes: No Symptoms Ears, Nose, & Throat: No Symptoms Respiratory: No Symptoms, No Cough, No Dyspnea Cardiac: No Symptoms, No Chest Pain, No Edema, No Syncope Abdominal/Gastrointestinal: No Symptoms, No Abdominal Pain, No Nausea, No Vomiting, No Diarrhea Genitourinary Symptoms: No Symptoms, No Dysuria Musculoskeletal: No Symptoms, No Back Pain, No Neck Pain Skin: No Symptoms, No Rash Neurological: No Symptoms, No Dizziness, No Focal Weakness, No Sensory Changes Psychological: No Symptoms Endocrine: No Symptoms Hematologic/Lymphatic: No Symptoms Immunological/Allergic: No Symptoms All Other Systems: Reviewed and Negative - Past Medical History Pertinent Past Medical History: Yes Neurological History: No Pertinent History Cardiac History: Hypertension Endocrine Medical History: Diabetes Type II Musculoskeletal History: Arthritis GI Medical History: No Pertinent History History: No Pertinent History Psycho-Social History: No Pertinent History Male Reproductive Disorders: No Pertinent History Other Medical History: arthritis in back - Past Surgical History Past Surgical History: Yes - Social History Smoking Status: Former smoker Exposure to second hand smoke: No Drug Use: none Patient Lives Alone: No - Nursing Vital Signs Nursing Vital Signs: Initial Vital Signs Temperature 98.5 F 07/21/24 01:42 Pulse Rate 65 07/21/24 01:42 Respiratory Rate 18 07/21/24 01:42 Blood Pressure 167/98 07/21/24 01:42 O2 Sat by Pulse Oximetry 98 07/21/24 01:42 Pain Scale Pain Intensity 2 - Physical Exam General Appearance: no apparent distress, alert Eye Exam: PERRL/EOMI, eyes nml inspection Ears, Nose, Throat Exam: normal ENT inspection, moist mucous membranes Neck Exam: normal inspection, full range of motion Respiratory Exam: normal breath sounds, lungs clear, airway intact, No r espiratory distress Cardiovascular Exam: regular rate/rhythm, normal heart sounds, normal peripheral pulses Gastrointestinal/Abdomen Exam: soft, No tenderness, No mass Back Exam: normal inspection, No CVA tenderness, No vertebral tenderness Extremity Exam: normal inspection, normal range of motion Neurologic Exam: alert, oriented x 3, cooperative, normal mood/affect, sensation nml, No motor deficits Skin Exam: normal color, warm, dry Lymphatic Exam: No adenopathy SpO2 Interpretation: normal SpO2: 98 O2 Delivery: Room Air - Course Nursing assessment & vital signs reviewed: Yes EKG Interpreted by Me: RATE (70), Sinus Rhythm (Anterior lead ST segment elevation with lateral lead depression.), NORMAL AXIS, Left Bundle Branch Block - Radiology Exams Chest X-ray Interpretation: Interpreted by me (No acute findings) Ordered Tests: Active Orders 24 hr Category Date Time Status [employer] STAT Care 07/21/24 01:48 Active EKG-ER Only STAT Care 07/21/24 01:48 Active IV Insertion STAT Care 07/21/24 01:48 Active Pulse Oximetry (ED) STAT Care 07/21/24 01:48 Active CHEST 1 VIEW (PORTABLE) Stat Exams 07/21/24 01:48 Taken CBC Q48H Lab 07/22/24 06:00 Ordered CBC Q48H Lab 07/24/24 06:00 Ordered CBC Q48H Lab 07/26/24 06:00 Ordered CBC Q48H Lab 07/28/24 06:00 Ordered CBC Q48H Lab 07/30/24 06:00 Ordered CBC Q48H Lab 08/01/24 06:00 Ordered CBC Q48H Lab 08/03/24 06:00 Ordered CBC W DIFF Stat Lab 07/21/24 01:57 Completed CMP Stat Lab 07/21/24 01:57 Completed NT PRO BNPII Stat Lab 07/21/24 01:57 Completed PROTIME WITH INR Stat Lab 07/21/24 01:57 Completed PTT Q4H Lab 07/21/24 06:00 Ordered PTT Q4H Lab 07/21/24 10:00 Ordered PTT Q4H Lab 07/21/24 14:00 Ordered PTT Q4H Lab 07/21/24 18:00 Ordered PTT Q4H Lab 07/21/24 22:00 Ordered PTT Q4H Lab 07/22/24 02:00 Ordered PTT Q4H Lab 07/22/24 06:00 Ordered PTT Q4H Lab 07/22/24 10:00 Ordered PTT Q4H Lab 07/22/24 14:00 Ordered PTT Q4H Lab 07/22/24 18:00 Ordered PTT Q4H Lab 07/22/24 22:00 Ordered PTT Stat Lab 07/21/24 01:57 Completed TROPONIN Q4H Lab 07/21/24 01:57 Completed TROPONIN Q4H Lab 07/21/24 06:00 Ordered TROPONIN Q4H Lab 07/21/24 10:00 Ordered UA W/RFX UR CULTURE Stat Lab 07/21/24 01:48 Ordered Medication Summary Generic Name Dose Route Start Last Admin Trade Name Freq PRN Reason Stop Dose Admin Nitroglycerin/Dextrose 250 mls @ 1.5 mls/hr 07/21/24 01:52 07/21/24 02:10 Ntg 0.2mg/Ml In D5w Glass IV 08/20/24 01:51 5 mcg/min .Q24H PRN 1.5 mls/hr CHEST PAIN Administration Protocol 5 MCG/MIN Heparin Sodium/Dextrose 25,000 units in 250 mls @ 0 mls/hr 07/21/24 02:00 Heparin 25,000 Units/D5w: Use Order Set Lowell IV 08/20/24 01:59 YUE Protocol 12 UNITS/KG/HR Discontinued Medications Generic Name Dose Route Start Last Admin Trade Name Ralph PRN Reason Stop Dose Admin Aspirin 324 mg 07/21/24 01:52 07/21/24 02:08 Aspirin 81 Mg Tab.Chew PO 07/21/24 01:53 324 mg STAT ONE Administration Aspirin Confirm 07/21/24 02:09 Aspirin 81 Mg Tab.Chew Administered 07/21/24 02:10 Dose 324 mg .ROUTE .STK-MED ONE Heparin Sodium (Beef Lung) 5,000 unit 07/21/24 01:53 07/21/24 02:10 Heparin 5000 Units/0.5 Ml 5,000 Unit/0.5 Ml Syr IV 07/21/24 01:54 5,000 unit STAT STA Administration Heparin Sodium (Beef Lung) Confirm 07/21/24 02:09 Heparin 5000 Units/0.5 Ml 5,000 Unit/0.5 Ml Syr Administered 07/21/24 02:10 Dose 5,000 unit .ROUTE .STK-MED ONE Lab/Rad Data: Laboratory Result Diagrams 07/21/24 01:57 07/21/24 01:57 Laboratory Results 07/21/24 07/21/24 07/21/24 Range/Units 01:57 01:57 01:57 WBC (4.23-9.07) x10^3/uL RBC (4.63-6.08) x10^6/uL Hgb (13.7-17.5) g/dL Hct (40.1-51.0) % MCV (79.0-92.2) fL MCH (25.7-32.2) pg MCHC (32.3-36.5) g/dL RDW (11.6-14.4) % Plt Count (163-337) x10^3/uL MPV (9.4-12.4) fL Gran % (34.0-67.9) % Immature Gran % (Auto) (0.001-0.429) % Nucleat RBC Rel Count (0.00-0.2) % Eos # (Auto) (0.04-0.54) x10^3/uL Immature Gran # (Auto) (0.001-0.031) x10^3u/L Absolute Lymphs (auto) (1.32-3.57) x10^3/uL Absolute Monos (auto) (0.30-0.82) x10^3/uL Absolute Nucleated RBC (0.00-0.012) x10^3u/L Lymphocytes % (21.8-53.1) % Monocytes % (5.3-12.2) % Eosinophils % (0.8-7.0) % Basophils % (0.2-1.2) % Absolute Granulocytes (1.78-5.38) x10^3/uL Basophils # (0.01-0.08) x10^3/uL PT 10.5 (9.4-12.5) SECONDS INR 0.96 (0.8-3.0) APTT 25.1 (25.1-36.5) SECONDS Sodium 139 (135-145) mmol/L Potassium 3.5 (3.5-5.1) mmol/L Chloride 101 (98-107) mmol/L Carbon Dioxide 28 (22-30) mmol/L Anion Gap 13.7 (5-15) MEQ/L BUN 15 (9-20) mg/dL Creatinine 1.10 (0.66-1.25) mg/dL Estimated GFR 77.8 ML/MIN Glucose 123 H (74-106) mg/dL Calcium 9.6 (8.4-10.2) mg/dL Total Bilirubin 0.90 (0.2-1.3) mg/dL AST 40 (17-59) U/L ALT 24 (0-50) U/L Alkaline Phosphatase 40 (38-126) U/L Troponin I 0.012 (0.000-0.033) ng/mL NT-Pro-B Natriuret Pep 359 (<300) pg/mL Serum Total Protein 7.6 (6.3-8.2) g/dL Albumin 4.6 (3.5-5.0) g/dL 07/21/24 Range/Units 01:57 WBC 7.3 (4.23-9.07) x10^3/uL RBC 4.41 L (4.63-6.08) x10^6/uL Hgb 13.4 L (13.7-17.5) g/dL Hct 39.0 L (40.1-51.0) % MCV 88.4 (79.0-92.2) fL MCH 30.4 (25.7-32.2) pg MCHC 34.4 (32.3-36.5) g/dL RDW 12.3 (11.6-14.4) % Plt Count 277 (163-337) x10^3/uL MPV 10.1 (9.4-12.4) fL Gran % 54.4 (34.0-67.9) % Immature Gran % (Auto) 0.3 (0.001-0.429) % Nucleat RBC Rel Count 0.0 (0.00-0.2) % Eos # (Auto) 0.16 (0.04-0.54) x10^3/uL Immature Gran # (Auto) 0.02 (0.001-0.031) x10^3u/L Absolute Lymphs (auto) 2.41 (1.32-3.57) x10^3/uL Absolute Monos (auto) 0.70 (0.30-0.82) x10^3/uL Absolute Nucleated RBC 0.00 (0.00-0.012) x10^3u/L Lymphocytes % 33.1 (21.8-53.1) % Monocytes % 9.6 (5.3-12.2) % Eosinophils % 2.2 (0.8-7.0) % Basophils % 0.4 (0.2-1.2) % Absolute Granulocytes 3.97 (1.78-5.38) x10^3/uL Basophils # 0.03 (0.01-0.08) x10^3/uL PT (9.4-12.5) SECONDS INR (0.8-3.0) APTT (25.1-36.5) SECONDS Sodium (135-145) mmol/L Potassium (3.5-5.1) mmol/L Chloride (98-107) mmol/L Carbon Dioxide (22-30) mmol/L Anion Gap (5-15) MEQ/L BUN (9-20) mg/dL Creatinine (0.66-1.25) mg/dL Estimated GFR ML/MIN Glucose (74-106) mg/dL Calcium (8.4-10.2) mg/dL Total Bilirubin (0.2-1.3) mg/dL AST (17-59) U/L ALT (0-50) U/L Alkaline Phosphatase (38-126) U/L Troponin I (0.000-0.033) ng/mL NT-Pro-B Natriuret Pep (<300) pg/mL Serum Total Protein (6.3-8.2) g/dL Albumin (3.5-5.0) g/dL - Progress Progress: improved Air Movement: good Progress Note: 59-year-old male history of diabetes, hypertension hypercholesterolemia presents to our ED for evaluation of 2-day history of chest pain. Chest pain has gotten worse. Chest pain kept him from sleeping this morning. Pain radiates to the left arm. Physical exam otherwise nonremarkable. EKG reveals ST segment elevation precordial leads with reciprocal changes laterally. There is a left bundle branch block observed. This may obscure a classical STEMI as seen on ED EKG. Patient received 324 mg of aspirin, heparin bolus followed by heparin drip. Nitro drip initiated. Patient reassessed. Chest pain improved. Vital stable. Case discussed with ER physician from [facility] who accepts transfer at 2:10 AM. Plan of care discussed with patient. He agrees to transfer to [facility] for further evaluation and treatment. He voices no other complaints or concerns at this time. Portions of this note were created with voice recognition technology. There may be grammatical, spelling, punctuation or sound alike errors Complexity of problem addressed is moderate acute complicated. Critical care time is 45 minutes. Complex of data reviewed and analyzed is extensive. Test ordered chest reviewed results analyzed and correlated clinically with history and physical exam. Management discussed with ER physician at [facility] who accepts transfer at 2:10 AM. EKG faxed to [facility] as well. Risk of complication/risk of morbidity/mortality of patient management is high. Patient will be transferred for higher level of care. Vital stable. Time spent to transfer patient is approximately 15 minutes. Plan of care established for shared decision making. No social determinants of health present to impede follow-up. Portions of this note were created with voice recognition technology. There may be grammatical, spelling, punctuation or sound alike errors 07/21/24 02:23 07/21/24 02:27 Blood Culture(s) Obtained: No Antibiotics given: No Counseled pt/family regarding: lab results, diagnosis, rad results - Departure Departure Disposition: Transfer Clinical Impression: STEMI (ST elevation myocardial infarction) Condition: Stable Critical Care Time: Yes Critical Care Time(excluding separately billable procedures): Critical 30-74 mins Referrals: Mralene Weinstein [Primary Care Provider] - Follow up/PCP as directed
[2024-07-21 02:00] LABS: Absolute Neutrophil Ct (ANC) 3.97 x10^3/uL (1.78-5.38); BASOPHIL % 0.4 % (0.2-1.2); Basophil (Absolute #) 0.03 x10^3/uL (0.01-0.08); Eosinophil % 2.2 % (0.8-7.0); Eosinophil (Absolute #) 0.16 x10^3/uL (0.04-0.54); Hemoglobin 13.4 g/dL (13.7-17.5); IMMATURE GRAN # 0.02 x10^3u/L (0.001-0.031); IMMATURE GRAN % 0.3 % (0.001-0.429); Lymphocyte (Absolute #) 2.41 x10^3/uL (1.32-3.57); Lymphocytes % 33.1 % (21.8-53.1); Mean Cell Volume 88.4 fL (79.0-92.2); Mean Corpuscular Hemoglobin 30.4 pg (25.7-32.2); Mean Corpuscular Hgb Concent. 34.4 g/dL (32.3-36.5); Mean Platelet Volume 10.1 fL (9.4-12.4); Monocytes % 9.6 % (5.3-12.2); Neutrophil % 54.4 % (34.0-67.9); Platelet Count 277 x10^3/uL (163-337); Red Blood Count 4.41 x10^6/uL (4.63-6.08); Red Cell Distribution Width 12.3 % (11.6-14.4); White Blood Count 7.3 x10^3/uL (4.23-9.07)
[2024-07-21] MEDS ORDERED: Heparin 25,000 units/D5W: USE ORDER SET PROTO 25,000 UNITS/250 ML BAG IV SCH (02:00)
[2024-07-21] MEDS: BABY ASPIRIN 81 MG CHEW PO ONE (02:08)
[2024-07-21] MEDS ORDERED: BABY ASPIRIN 81 MG CHEW ONE (02:09)
[2024-07-21] MEDS ORDERED: Ntg 0.2MG/Ml in D5W GLASS*** 250 ML IV ONE (02:09)
[2024-07-21] MEDS ORDERED: HEPARIN 5000 UNITS/0.5 ML (HIGH RISK MED) ONE (02:09)
[2024-07-21] MEDS: Ntg 0.2MG/Ml in D5W GLASS*** 250 ML IV PRN (02:10)
[2024-07-21] MEDS: HEPARIN 5000 UNITS/0.5 ML (HIGH RISK MED) IV STA (02:10)
[2024-07-21 02:14] LABS: ALBUMIN 4.6 g/dL (3.5-5.0); ANION GAP 13.7 MEQ/L (5-15); BILIRUBIN,TOTAL 0.9 mg/dL (0.2-1.3); Calcium 9.6 mg/dL (8.4-10.2); Creatinine 1 1.1 mg/dL (0.66-1.25); EST GLOMERULAR FILTRATION RATE 77.8 ML/MIN; Potassium 3.5 mmol/L (3.5-5.1); Total Protein 7.6 g/dL (6.3-8.2)
[2024-07-21 02:16] VITALS: TEMP 98.5; O2SAT 98
[2024-07-21 02:16] LABS: INR 0.96 (0.8-3.0); PROTIME 10.5 SECONDS (9.4-12.5); PTT 25.1 SECONDS (25.1-36.5)
[2024-07-21 02:26] LABS: TROPONIN 0.012 ng/mL (0.000-0.033)
[2024-07-21 02:44] VITALS: BP 138/85; PULSE 63; RESP 18
--- NOTE | 2024-07-21 03:01 | XRAY ---
CLINICAL HISTORY: pain COMPARISON: None. TECHNIQUE: An X-ray image of the chest is obtained using an AP projection. FINDINGS: Pulmonary Parenchyma: Mild right perihilar broncho-vascular prominence. There is no evidence of consolidation, collapse, or focal opacities. No pulmonary nodules are identified. There is no evidence of pleural effusion or pleural thickening. Heart and Mediastinum: The heart size cannot be commented on in this projection. No mediastinal widening or masses. No hilar or mediastinal lymphadenopathy. Bony Thorax: The bony thorax appears intact without fractures or deformities. Soft Tissues: Soft tissues overlying the chest wall are unremarkable. Multiple tubing artifacts are seen projected over the chest. IMPRESSION: 1. No acute cardiopulmonary abnormalities are identified. 2. No evidence of consolidation, collapse, or pleural effusion. Electronically Signed by: Tamica Daniels MD. (07/21/2024 02:58:34 EST)
== END 2024-07-21 02:38 | disposition short-term general hospital (02) ==
LOC: ED 01:41
DX: I21.3 ST elevation (STEMI) myocardial infarction of unspecified site (principal); R07.9 Chest pain, unspecified; E11.9 Type 2 diabetes mellitus without complications; I10 Essential (primary) hypertension; E78.5 Hyperlipidemia, unspecified; Z79.84 Long term (current) use of oral hypoglycemic drugs; Z79.899 Other long term (current) drug therapy
CPT/HCPCS: 36415; 71045; 80053; 83880; 84484; 85025; 85610; 85730; 93005; 93041; 94760; 96374; 96375; 99285; 99291; J1644; A9270-GY